=== PATIENT | female | born 1995 | race Caucasian/White ===

== ENCOUNTER 2019-04-20 20:11 | Emergency (ER) | payer OTHER ==
[~2019-04-20] VITALS: Ht 165.1 cm; Wt 113.6 kg
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
[2019-04-20] MEDS ORDERED: KETOROLAC 30 MG/ML VIAL (J1885) IV ONE (22:30)
[2019-04-20] MEDS ORDERED: ONDANSETRON 4MG/2ML VIAL (J2405) IV ONE (22:30)
[2019-04-20] MEDS ORDERED: ISOVUE-370 76% 100ML VIAL (Q9967) As Ordered ONE (22:58)
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
[2019-04-21] MEDS ORDERED: IBUP-1022 PO (00:12)
[2019-04-21] MEDS ORDERED: CYCL5TAB PO (00:12)
[2019-04-21] MEDS ORDERED: ONDA4TAB6 PO (00:12)
[2019-04-21] MEDS ORDERED: CYCLOBENZAPRINE 10 MG TAB PO ONE (00:15)
[2019-04-21 00:33] VITALS: BP 170/81
== END 2019-04-21 00:33 | disposition home or self-care (01) ==
LOC: M ED 20:11
DX: S16.1XXA Strain of muscle, fascia and tendon at neck level, initial encounter (principal); S06.0X0A Concussion without loss of consciousness, initial encounter; V43.52XA Car driver injured in collision with other type car in traffic accident, initial encounter; Y92.9 Unspecified place or not applicable; Y93.9 Activity, unspecified; Y99.9 Unspecified external cause status; F41.9 Anxiety disorder, unspecified; Z88.8 Allergy status to other drugs, medicaments and biological substances
CPT/HCPCS: 70450; 71260; 72125; 74177; 80047; 84702; 96374; 96375; 99284; J1885; J2405; Q9967